=== PATIENT | male | born 1935 | race Caucasian/White ===

== ENCOUNTER 2018-01-06 08:30 | Inpatient (IN) | payer MEDICARE ==
[2018-01-06] MEDS ORDERED: Acetaminophen 500 MG Tab PO ONE (09:00)
[2018-01-06] MEDS ORDERED: Gabapentin 300 MG Cap PO ONE (09:00)
[2018-01-06] MEDS ORDERED: cefOXitin 2 GM in Sodium Chloride 0.9% 50 ML IV ONE (09:00)
[2018-01-06] MEDS ORDERED: Dextrose 5%-Lactated Ringers 1,000 ML IV SCH (09:00)
[2018-01-06] MEDS ORDERED: Ketamine 500 MG/5 ML MDV IV ONE (09:30)
[2018-01-06] MEDS ORDERED: Ropivacaine 50 ML, Dexamethasone 8 MG, EPINEPHrine 0.4 MG, Sodium Chloride 0.9% 27.6 ML NERVRT ONE ×4 (09:30)
[2018-01-06] MEDS ORDERED: Bupivacaine 0.5%/EPINEPHrine 1:200,000 50 ML MDV ONE (09:55)
[2018-01-06] MEDS ORDERED: Scopolamine 1.5 MG Transdermal Patch TOP SCH (10:30)
[2018-01-06] MEDS ORDERED: Succinylcholine 200 MG/10 ML MDV ONE (10:44)
[2018-01-06] MEDS ORDERED: Neostigmine Methylsulfate 1 MG/ML 5 ML Syringe ONE (10:44)
[2018-01-06] MEDS ORDERED: Rocuronium 50 MG/5 ML Vial ONE (10:44)
[2018-01-06] MEDS ORDERED: Ondansetron 4 MG/2 ML SDV ONE (10:44)
[2018-01-06] MEDS ORDERED: Propofol 200 MG/20 ML SDV ONE (10:44)
[2018-01-06] MEDS ORDERED: Glycopyrrolate 0.2 MG/ML 5 ML MDV ONE (10:44)
[2018-01-06] MEDS ORDERED: fentaNYL 250 MCG/5 ML SDV ONE ×2 (10:44→13:21)
[2018-01-06] MEDS ORDERED: Dexamethasone 4 MG/ML SDV ONE (10:44)
[2018-01-06] MEDS ORDERED: Lactated Ringers 1,000 ML ONE (13:48)
[2018-01-06] MEDS ORDERED: HYDROmorphone/Normal Saline 15 MG/30 ML PCA IV PRN (14:58)
[2018-01-06] MEDS ORDERED: Naloxone 0.4 MG/ML SDV IV PRN (15:04)
[2018-01-06] MEDS ORDERED: Ondansetron 4 MG/2 ML SDV IV PRN (15:59)
[2018-01-06] MEDS ORDERED: Glucagon,Human Recombinant 1 MG Vial IM PRN (16:09)
[2018-01-06] MEDS ORDERED: Glucose Gel 15 GM in 37.5 GM Tube PO PRN (16:09)
[2018-01-06] MEDS ORDERED: 50% Dextrose in Water 50 ML Syringe IVPUSH PRN (16:09)
[2018-01-06] MEDS ORDERED: Acetaminophen 325 MG Tab PO PRN (16:13)
[2018-01-06] MEDS: VERIFY SCOP PATCH TOP SCH (16:31)
[2018-01-06] MEDS: Insulin Aspart 100 Units/ML 3 ML Pen SUBCUT PRN ×2 (16:40→21:15)
[2018-01-06] MEDS: Dextrose 5%-Lactated Ringers 1,000 ML IV SCH ×2 (17:21→23:58)
[2018-01-06] MEDS: cefOXitin 2 GM in Sodium Chloride 0.9% 50 ML IV SCH (17:21)
[2018-01-06] MEDS: HYDROmorphone 2 MG Tab PO PRN ×2 (20:18→21:12)
[2018-01-06] MEDS: Ibuprofen 400 MG Tab PO SCH (21:19)
[2018-01-06] MEDS: Simvastatin 20 MG Tab PO SCH (21:20)
[2018-01-06] MEDS: Gabapentin 300 MG Cap PO SCH (21:20)
[2018-01-06] MEDS: Tamsulosin 0.4 MG Cap.ER PO SCH (21:21)
[2018-01-07] MEDS: VERIFY SCOP PATCH TOP SCH ×3 (00:51→20:09)
[2018-01-07] MEDS: cefOXitin 2 GM in Sodium Chloride 0.9% 50 ML IV SCH ×5 (00:55→23:37)
[2018-01-07] MEDS: HYDROmorphone 2 MG Tab PO PRN (05:49)
[2018-01-07] MEDS: Lisinopril 20 MG Tab PO SCH (08:00)
[2018-01-07] MEDS: Gabapentin 300 MG Cap PO SCH ×3 (08:00→20:07)
[2018-01-07] MEDS: Docusate Sodium 100 MG Cap PO SCH ×2 (08:00→20:06)
[2018-01-07] MEDS: Ibuprofen 400 MG Tab PO SCH ×3 (08:00→20:06)
[2018-01-07] MEDS: Insulin Aspart 100 Units/ML 3 ML Pen SUBCUT PRN (17:07)
[2018-01-07] MEDS: Tamsulosin 0.4 MG Cap.ER PO SCH (20:06)
[2018-01-07] MEDS: Dextrose 5%-Lactated Ringers 1,000 ML IV SCH (20:15)
[2018-01-07] MEDS: Simvastatin 20 MG Tab PO SCH (20:16)
[2018-01-07] MEDS ORDERED: Bisacodyl 5 MG Tab PO SCH (21:00)
[2018-01-08] MEDS: Dextrose 5%-Lactated Ringers 1,000 ML IV SCH (06:03)
[2018-01-08] MEDS: cefOXitin 2 GM in Sodium Chloride 0.9% 50 ML IV SCH (06:03)
[2018-01-08] MEDS: Ibuprofen 400 MG Tab PO SCH (08:33)
[2018-01-08] MEDS: Gabapentin 300 MG Cap PO SCH (08:34)
[2018-01-08] MEDS: Docusate Sodium 100 MG Cap PO SCH (08:35)
[2018-01-08] MEDS: Lisinopril 20 MG Tab PO SCH (08:35)
[2018-01-08] MEDS: HYDROmorphone 2 MG Tab PO PRN (08:35)
[2018-01-08 08:36] VITALS: BP 114/55
[2018-01-08] MEDS: VERIFY SCOP PATCH TOP SCH (08:37)
[2018-01-08] MEDS ORDERED: Magnesium Hydroxide 400 MG/5 ML Susp 30 ML Cup PO PRN (08:42)
[2018-01-08] MEDS ORDERED: Bisacodyl 5 MG Tab PO PRN (08:42)
--- NOTE | 2018-01-08 10:25 | PN ---
DATE OF SERVICE: 01/07/2018 The patient has been afebrile with stable vital signs, not requiring much in the way of pain medicine. We will back down the IV rate, beginning a full liquid diet and give him some bowel stimulation, and otherwise maximize activity, work with pulmonary toilet. López Conley MD /[id number]
--- NOTE | 2018-01-09 15:01 | DISCH ---
FINAL DIAGNOSES: 1. Subacute appendicitis, status post previous drainage of periappendiceal abscess. 2. Adherence of appendix to cecum and associated pericolonic abscess. OPERATIVE PROCEDURES: Diagnostic laparoscopy with; 1. Partial cecectomy with removal of overlying appendix. 2. Drainage of pericolonic abscess, that was done on 01/06/2018. OTHER DIAGNOSES: 1. Type 2 diabetes mellitus. 2. Hyperlipidemia. 3. Cardiomegaly. HOSPITAL COURSE: This is an 83-year-old male presenting for consideration of interval appendectomy. The patient had appendicitis with periappendiceal abscess with the abscess being drained percutaneously in [place] in mid-October of this year. Clinically, he has done well at this point. A CT scan done the day before admission showed some continued inflammation in that area and some fluid in the area between the appendix, cecum, and lateral abdominal wall. At the time of diagnostic laparoscopy, the patient was noted to have some smoldering inflammation within the appendix and did have a pericolonic abscess up along the edge of the lower cecum. The inflammation extended well on to the cecal base and a substantial amount of the cecum was removed, but not impinging on the ileocecal valve. Postoperatively, the patient has done well. He is not having much in the way of pain. He is passing some gas at this point. He is only requiring ibuprofen for pain. He will be sent home on his current home medications, plus ibuprofen 400 mg q.6 hours p.r.n. pain. We will send him home with 2 doses of milk of magnesia to take one today and one tomorrow if needed and 3 dulcolax tablets to take tonight at bedtime if he has not had a bowel movement as of yet. Follow up with Dr. Conley will be at [facility] on 01/18/2018 at 9 a.m.
--- NOTE | 2018-01-16 12:05 | OR ---
DATE OF PROCEDURE: 01/06/2018 PREOPERATIVE DIAGNOSES: 1. Recent appendicitis, status post percutaneous drainage of periappendiceal abscess. 2. Enlarged frequently inflamed cutaneous hemangioma, right lower quadrant abdominal wall. POSTOPERATIVE DIAGNOSES: 1. Recent appendicitis, status post percutaneous drainage of periappendiceal abscess. 2. Enlarged frequently inflamed cutaneous hemangioma, right lower quadrant abdominal wall. 3. Subacute appendicitis with inflammatory adherence of the appendix to the cecum with a pericolonic abscess. OPERATIVE PROCEDURE: 1. Excision of cutaneous hemangioma of right lower quadrant abdominal wall (23696). 2. Diagnostic laparoscopy with: a. Partial cecectomy with removal of overlying appendix (67300). b. Drainage of pericolonic abscess (12028). ANESTHESIA: General. LINER CHECKER: KAT Nath. INDICATION FOR PROCEDURE: The patient is status post a drainage of periappendiceal abscess in [place] in October, who presents now for a subsequent interval appendectomy. A CT scan was obtained yesterday, which showed subcutaneous inflammation and some fluid collection adjacent to the appendix and cecum. Plan is to proceed with diagnostic laparoscopy, laparotomy if necessary, and removal of appendix as well as any additional resection as indicated based on operative findings. Potential risks of the procedure including bleeding, infection, injury to the underlying viscera, leaks from GI tract closures, as well as possibility of cardiopulmonary, septic, or hemorrhagic complications leading to were discussed, and the patient wishes to proceed. Additionally, on preoperative examination, he was noted to have a large cutaneous hemangioma of the right lower quadrant abdominal wall, which he and his wished to have excised as well. DETAILS OF PROCEDURE: The patient was taken to the operating room and placed in a supine position. After general endotracheal anesthesia was induced, a Aguillon catheter was inserted and the abdomen prepped and draped. Initially, the cutaneous hemangioma was identified and this measured 8 mm in size and was excised, flushed with the underlying the skin and subcutaneous tissue and this was closed at the time of the skin closure of the other incision with simple layer of 4-0 Vicryl stitch. Three fingers to the left and superior to the umbilicus, a transverse incision was made and the peritoneal cavity entered under direct vision with an Optiview trocar, inflated to 15 mmHg pressure with CO2. The laparoscope was reinserted. No underlying trocar insertion site injuries were seen. Following this, eventually, 3 additional trocars were placed in the right upper quadrant as well as left lower quadrant and the lower mid abdomen. As one dissected down, there was some omentum off the area of the appendix, this area was identified. The patient was noted to have ongoing inflammation of the appendix, consistent with subacute appendicitis. Dissection continued, extremely adherent to the cecum, and the appendix and cecum were then dissected away from the lateral sidewall of the lower abdomen and pelvis. A purulent collection adjacent to cecum was encountered and this abscess was then evacuated. The dissection was then continued somewhat up onto the cecum until a relatively soft area was dissected free, which would allow visualization of the cecum at that level at a point of relatively safe for application of the staple. This was then accomplished with sequential firings of purple and blue loads with care made to visualize the ileocecal valve and avoid tightening of that during application of the stapler. The distal cecum and appendix were as required divided with Harmonic scalpel. The specimen was then delivered through the left lateral trocar site to the specimen bag. At this point, no further problems were noted. There appeared to be no remaining purulent fluid present. The cecal staple line was reinforced with some fibrin sealant. Bilateral transverse abdominis plane block was then placed under direct vision of the needles in the lateral mid abdomen in the correct plane and injection of a standard solution bilaterally. The trocars were then removed. The 12 mm sites were then closed with 0 Vicryl stitch and the skin with a 4-0 Vicryl skin stitch. The Telly-Gusman drain had been placed through an additional trocar, placed in the right flank and positioned across the area of the cecal staple line and from there into the pelvis. This was sutured with a 4-0 Vicryl stitch as well. And the patient was taken to the recovery room in satisfactory condition. There were no evident complications. López Conley MD /[id number]
== END 2018-01-08 10:25 | disposition home or self-care (01) | DRG 331 ==
LOC: JP.SDS 08:30 → JP.MS 08:30 → EDSTATUS 11:15 → JP.MS 14:50
PROVIDERS: ADMIT Surgery; ATTEND Surgery
PROC: 0DTJ4ZZ Resection of Appendix, Percutaneous Endoscopic Approach (ICD-10-PCS; principal; 2018-01-06)
PROC: 0DBH4ZZ Excision of Cecum, Percutaneous Endoscopic Approach (ICD-10-PCS; 2018-01-06)
PROC: 0W9G4ZX Drainage of Peritoneal Cavity, Percutaneous Endoscopic Approach, Diagnostic (ICD-10-PCS; 2018-01-06)
PROC: 0HB7XZZ Excision of Abdomen Skin, External Approach (ICD-10-PCS; 2018-01-06)
DX: K35.3 Acute appendicitis with localized peritonitis (principal); D18.01 Hemangioma of skin and subcutaneous tissue; I10 Essential (primary) hypertension; E11.9 Type 2 diabetes mellitus without complications; M54.9 Dorsalgia, unspecified; G89.29 Other chronic pain; E78.1 Pure hyperglyceridemia; E78.2 Mixed hyperlipidemia; Z88.5 Allergy status to narcotic agent; Z88.8 Allergy status to other drugs, medicaments and biological substances; Z79.82 Long term (current) use of aspirin; I51.7 Cardiomegaly
CPT/HCPCS: 82962; 87070; 87075; 87077; 87205; 88304; A9270-GY; J0171; J0330; J0694; J1100; J2405; J2704; J2710; J2795; J3010; J7042; J7050; J7120

== ENCOUNTER 2018-01-23 07:44 | Inpatient (IN) | payer MEDICARE ==
[2018-01-23] MEDS ORDERED: Acetaminophen 500 MG Tab PO ONE (08:00)
[2018-01-23] MEDS ORDERED: Gabapentin 300 MG Cap PO ONE (08:00)
[2018-01-23] MEDS ORDERED: fentaNYL 250 MCG/5 ML SDV ONE (08:10)
[2018-01-23] MEDS ORDERED: Rocuronium 50 MG/5 ML Vial ONE (08:11)
[2018-01-23] MEDS ORDERED: Succinylcholine 200 MG/10 ML MDV ONE (08:11)
[2018-01-23] MEDS ORDERED: Propofol 200 MG/20 ML SDV ONE (08:11)
[2018-01-23] MEDS ORDERED: Neostigmine Methylsulfate 1 MG/ML 5 ML Syringe ONE (08:11)
[2018-01-23] MEDS ORDERED: Dexamethasone 4 MG/ML SDV ONE (08:11)
[2018-01-23] MEDS ORDERED: Glycopyrrolate 0.2 MG/ML 5 ML MDV ONE (08:11)
[2018-01-23] MEDS ORDERED: Ondansetron 4 MG/2 ML SDV ONE (08:11)
[2018-01-23] MEDS ORDERED: Dextrose 5%-Lactated Ringers 1,000 ML IV SCH (08:15)
[2018-01-23] MEDS ORDERED: cefOXitin 2 GM in Sodium Chloride 0.9% 50 ML IV ONE (09:45)
[2018-01-23] MEDS ORDERED: Ropivacaine 50 ML, Dexamethasone 8 MG, EPINEPHrine 0.4 MG, Sodium Chloride 0.9% 27.6 ML NERVRT SCH ×4 (09:45)
[2018-01-23] MEDS ORDERED: Ketamine 500 MG/5 ML MDV IV SCH (09:45)
[2018-01-23] MEDS ORDERED: Naloxone 0.4 MG/ML SDV IVPUSH PRN (10:06)
[2018-01-23] MEDS ORDERED: ePHEDrine 50 MG/ML SDV ONE (10:45)
[2018-01-23] MEDS ORDERED: Phenylephrine 1% 10 MG/ML SDV ONE (11:08)
[2018-01-23] MEDS ORDERED: Sodium Chloride 0.9% 10 ML ONE (11:08)
[2018-01-23] MEDS ORDERED: Meropenem 500 MG SDV ONE (11:22)
[2018-01-23] MEDS ORDERED: 50% Dextrose in Water 50 ML Syringe IVPUSH PRN (13:12)
[2018-01-23] MEDS ORDERED: Glucose Gel 15 GM in 37.5 GM Tube PO PRN (13:12)
[2018-01-23] MEDS ORDERED: Glucagon,Human Recombinant 1 MG Vial IM PRN (13:12)
[2018-01-23] MEDS: Gabapentin 300 MG Cap PO SCH ×2 (13:53→20:52)
[2018-01-23] MEDS: Acetaminophen 1,000 MG in Premix Bag 1 BAG IV SCH ×2 (13:55→20:51)
[2018-01-23] MEDS ORDERED: diphenhydrAMINE 50 MG/ML SDV IVPUSH PRN (13:58)
[2018-01-23] MEDS ORDERED: Naloxone 0.4 MG/ML SDV IV PRN (13:58)
[2018-01-23] MEDS ORDERED: Pantoprazole 40 MG Vial IVPUSH SCH (14:00)
[2018-01-23] MEDS ORDERED: Scopolamine 1.5 MG Transdermal Patch TOP SCH (14:00)
[2018-01-23] MEDS ORDERED: Ondansetron 4 MG/2 ML SDV IVPUSH PRN (14:00)
[2018-01-23] MEDS: Metoclopramide 10 MG/2 ML SDV IVPUSH SCH ×2 (14:04→20:51)
[2018-01-23] MEDS: cefOXitin 2 GM in Sodium Chloride 0.9% 50 ML IV SCH ×2 (15:55→22:03)
[2018-01-23] MEDS: Insulin Aspart 100 Units/ML 3 ML Pen SUBCUT PRN ×2 (16:38→20:55)
[2018-01-23] MEDS: fentaNYL 2,500 MCG in Sodium Chloride 0.9% 200 ML EPIDUR SCH (16:50)
[2018-01-23] MEDS: Dextrose 5%-Lactated Ringers 1,000 ML IV SCH (17:49)
[2018-01-23] MEDS: Tamsulosin 0.4 MG Cap.ER PO SCH (20:52)
[2018-01-24] MEDS: Metoclopramide 10 MG/2 ML SDV IVPUSH SCH ×4 (01:28→19:39)
[2018-01-24] MEDS: Acetaminophen 1,000 MG in Premix Bag 1 BAG IV SCH ×3 (01:28→13:45)
[2018-01-24] MEDS: Dextrose 5%-Lactated Ringers 1,000 ML IV SCH ×2 (01:29→12:45)
[2018-01-24] MEDS: cefOXitin 2 GM in Sodium Chloride 0.9% 50 ML IV SCH ×4 (04:55→23:25)
[2018-01-24] MEDS ORDERED: Bisacodyl 10 MG Supp RECTAL ONE (09:00)
[2018-01-24] MEDS ORDERED: Sodium Chloride 0.9% 10 ML Syringe FLUSH PRN (09:02)
[2018-01-24] MEDS: Lisinopril 20 MG Tab PO SCH (09:13)
[2018-01-24] MEDS: Gabapentin 300 MG Cap PO SCH ×3 (09:13→21:12)
[2018-01-24] MEDS: Aspirin 81 MG Tab.EC PO SCH (09:13)
[2018-01-24] MEDS: SCOPOLAMINE PATCH CHECK TOP SCH (09:14)
[2018-01-24] MEDS: Ibuprofen 600 MG Tab PO SCH ×3 (09:16→21:17)
--- NOTE | 2018-01-24 09:53 | PN ---
DATE OF SERVICE: 01/24/2018 SUBJECTIVE: Mushtaq is postop day #1. He has been up ambulating. States his pain is controlled. Vital signs have been stable. He did have a bowel movement. ADA drain put out 505 of a light pink serosanguineous drainage. REVIEW OF SYSTEMS: Remainder of review of systems negative for any pertinent positives and negatives. OBJECTIVE: GENERAL: Mushtaq Yoon is a pleasant 83-year-old male. He is alert and orientated. VITAL SIGNS: TPR is 96.3, 76, 16, and blood pressure 113/99. HEENT: Negative. NECK: Supple. HEART: Regular rate and rhythm. LUNGS: Clear. ABDOMEN: Dressings dry and intact. Abdominal binder is on. EXTREMITIES: Without peripheral edema. 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 Date of surgery, 01/24/2018. PLAN: 1. Dulcolax suppository one now. 2. Regular diet. 3. Ibuprofen 600 mg q.6 hours scheduled, take with food, by mouth. 4. Tramadol 50 to 100 mg q.4 hours p.r.n. pain. 5. Schedule, have consent signed for delayed primary closure, IV and local sedation, in a.m. on 01/25/2018, López Conley MD. N.p.o. after midnight. 6. Discontinue Aguillon catheter. 7. Decrease IV to 100 mL/hour. 8. Good pulmonary toilet. 9. We will evaluate p.r.n. or in a.m. Erika Wallace PA-C /[id number]
[2018-01-24] MEDS: Pantoprazole 40 MG Tab.CR PO SCH (10:51)
[2018-01-24] MEDS: fentaNYL 2,500 MCG in Sodium Chloride 0.9% 200 ML EPIDUR SCH (16:37)
[2018-01-24] MEDS: Magnesium Sulfate/Water 2 GM in Premix Bag 1 BAG IV SCH (17:57)
[2018-01-24] MEDS: Acetaminophen 500 MG Tab PO SCH (19:44)
[2018-01-24] MEDS: Tamsulosin 0.4 MG Cap.ER PO SCH (21:12)
[2018-01-25] MEDS: Magnesium Sulfate/Water 2 GM in Premix Bag 1 BAG IV SCH ×4 (00:19→12:11)
[2018-01-25] MEDS: Dextrose 5%-Lactated Ringers 1,000 ML IV SCH (00:25)
[2018-01-25] MEDS: Acetaminophen 500 MG Tab PO SCH ×5 (02:20→20:50)
[2018-01-25] MEDS: Metoclopramide 10 MG/2 ML SDV IVPUSH SCH ×2 (02:21→12:14)
[2018-01-25] MEDS: Ibuprofen 600 MG Tab PO SCH ×4 (04:07→21:44)
[2018-01-25] MEDS: cefOXitin 2 GM in Sodium Chloride 0.9% 50 ML IV SCH ×2 (04:10→12:11)
[2018-01-25] MEDS ORDERED: Propofol 200 MG/20 ML SDV ONE (04:33)
[2018-01-25] MEDS ORDERED: fentaNYL 100 MCG/2 ML SDV ONE (04:33)
[2018-01-25] MEDS ORDERED: Midazolam 1 MG/ML 2 ML SDV ONE (04:33)
[2018-01-25] MEDS ORDERED: Magnesium Sulfate/Water 50 ML ONE (06:00)
[2018-01-25] MEDS ORDERED: Meropenem 500 MG SDV ONE (06:45)
[2018-01-25] MEDS ORDERED: Bupivacaine 0.5% 50 ML MDV ONE (06:46)
[2018-01-25] MEDS ORDERED: Lidocaine 1% with EPINEPHrine 1:100,000 50 ML MDV ONE (06:46)
[2018-01-25] MEDS ORDERED: Ropivacaine 49 ML, Dexamethasone 8 MG, EPINEPHrine 0.4 MG, Sodium Chloride 0.9% 28.6 ML NERVRT SCH ×4 (08:00)
[2018-01-25] MEDS ORDERED: Naloxone 0.4 MG/ML SDV ONE (08:35)
--- NOTE | 2018-01-25 08:42 | PN ---
DATE OF SERVICE: 01/25/2018 SUBJECTIVE: Mushtaq is n.p.o. He will be having delayed primary closure today. Blood sugars last checked at 0132 hours, had been 109 and 113 in the past 24 hours. Vital signs have been stable, afebrile. Blood pressure does run low, 82 to 87/40 to 64. He has been up ambulating. Pain is controlled. Passing flatus. ADA drains have been putting out 70 and 70 of a light pink serosanguineous drainage. He is using his IS. REVIEW OF SYSTEMS: Remainder of review of systems negative for any pertinent positives and negatives. OBJECTIVE: GENERAL: Mushtaq Yoon is an 83-year-old male. He is alert and orientated. VITAL SIGNS: TPR 97.8, 69, 18, and blood pressure 87/64. HEENT: Negative. NECK: Supple. HEART: Regular rate and rhythm. LUNGS: Clear. ABDOMEN: Dressings dry and intact. ADA drain is intact. EXTREMITIES: Without peripheral edema. 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 Date of surgery, 01/24/2018. PLAN: Delayed primary closure this a.m. Orders to be written postoperatively. Erika Wallace PA-C /[id number]
[2018-01-25] MEDS: Pantoprazole 40 MG Tab.CR PO SCH (10:08)
[2018-01-25] MEDS: Lisinopril 20 MG Tab PO SCH (10:09)
[2018-01-25] MEDS: SCOPOLAMINE PATCH CHECK TOP SCH (10:09)
[2018-01-25] MEDS: Gabapentin 300 MG Cap PO SCH ×3 (10:09→20:51)
[2018-01-25] MEDS: Aspirin 81 MG Tab.EC PO SCH (10:10)
[2018-01-25] MEDS ORDERED: Magnesium Hydroxide 400 MG/5 ML Susp 30 ML Cup PO ONE ×2 (10:30→14:00)
[2018-01-25] MEDS ORDERED: Ondansetron 4 MG Tab.DIS PO PRN (12:12)
[2018-01-25] MEDS: traMADol 50 MG Tab PO PRN ×2 (12:30→18:31)
[2018-01-25] MEDS: Insulin Aspart 100 Units/ML 3 ML Pen SUBCUT PRN ×2 (18:28→21:46)
[2018-01-25] MEDS: Tamsulosin 0.4 MG Cap.ER PO SCH (20:51)
[2018-01-26] MEDS: Acetaminophen 500 MG Tab PO SCH ×4 (01:54→20:55)
[2018-01-26] MEDS: Ibuprofen 600 MG Tab PO SCH ×4 (03:22→22:00)
[2018-01-26] MEDS: Pantoprazole 40 MG Tab.CR PO SCH (07:51)
--- NOTE | 2018-01-26 08:37 | PN ---
DATE OF SERVICE: 01/26/2018 SUBJECTIVE: Mushtaq's ADA drain has put out 295 of a milky pink drainage. He has been having bowel movements. Blood sugars have been normal. He has been up ambulating. Pain has been controlled. REVIEW OF SYSTEMS: Remainder of review of systems negative for any pertinent positives and negatives. OBJECTIVE: GENERAL: Mushtaq Yoon is an 83-year-old male, sitting up in the chair, is alert and orientated. VITAL SIGNS: TPR 97, 86, 18. Blood pressure 116/95. HEENT: Negative. NECK: Supple. HEART: Regular rate and rhythm. LUNGS: Clear. ABDOMEN: Dressings dry and intact. ADA drain is draining a pink milky drainage. Abdominal binder has been on. EXTREMITIES: Without peripheral edema. ASSESSMENT: Right sigmoid colon resection, adenocarcinoma of appendix. Date of surgery 01/24/2018. PLAN: 1. Discontinue enteric. 2. Discontinue Senna Plus. 3. Discontinue scopolamine patch. 4. Continue good pulmonary toilet. 5. Discharge in a.m. and will be discharged with Augmentin 875 mg b.i.d. for 5 days. Erika Wallace PA-C /[id number]
[2018-01-26] MEDS: Gabapentin 300 MG Cap PO SCH ×3 (10:29→20:55)
[2018-01-26] MEDS: Aspirin 81 MG Tab.EC PO SCH (10:29)
[2018-01-26] MEDS: Lisinopril 20 MG Tab PO SCH (10:32)
[2018-01-26] MEDS: Insulin Aspart 100 Units/ML 3 ML Pen SUBCUT PRN (12:22)
[2018-01-26] MEDS ORDERED: BRANDY PO PRN (16:26)
[2018-01-26] MEDS: Linezolid 600 MG in Premix Bag 1 BAG IV SCH (17:05)
[2018-01-26] MEDS: Tamsulosin 0.4 MG Cap.ER PO SCH (20:56)
[2018-01-27] MEDS: Acetaminophen 500 MG Tab PO SCH ×5 (02:51→20:05)
[2018-01-27] MEDS: Linezolid 600 MG in Premix Bag 1 BAG IV SCH ×2 (03:01→15:48)
[2018-01-27] MEDS: Ibuprofen 600 MG Tab PO SCH ×4 (03:01→22:28)
[2018-01-27] MEDS: Pantoprazole 40 MG Tab.CR PO SCH (08:40)
[2018-01-27] MEDS: Lisinopril 20 MG Tab PO SCH (08:41)
[2018-01-27] MEDS: Gabapentin 300 MG Cap PO SCH ×3 (08:41→22:28)
[2018-01-27] MEDS: Aspirin 81 MG Tab.EC PO SCH (08:41)
--- NOTE | 2018-01-27 09:52 | PN ---
DATE OF SERVICE: 01/27/2018 HISTORY OF PRESENT ILLNESS: Mushtaq in the midafternoon had an increase of drainage from his ADA drain, had put out a total for 24 hours 645 mL of a light pink serosanguineous drainage. Culture and sensitivity were obtained of the ADA drainage, which showed many white blood cells with few gram-positive cocci. Fluid amylase 273, fluid lipase 31, and fluid triglycerides 21. He is feeling better. No further confusion, which Damien and Alexa thought were associated with the tramadol. Afebrile. Activity good. Oral intake 2600. Urine output: He has been independent. REVIEW OF SYSTEMS: Remainder of review of systems is negative for any pertinent positives and negatives. OBJECTIVE: VITAL SIGNS: Mushtaq Yoon is an 83-year-old male. TPR is 96.3, 72, 17, blood pressure 137/72. HEENT: Negative. NECK: Supple. HEART: Regular rate and rhythm. LUNGS: Clear. ABDOMEN: Incision looks good. ADA drain intact and has a clear pink drainage today. Abdominal binder has been on. EXTREMITIES: Without peripheral edema. ASSESSMENT: Right sigmoid colon resection, adenocarcinoma of the appendix. Date of surgery, 01/24/2018. PLAN: Continue good pulmonary toilet, Senokot S 2 b.i.d. Continue IV Zyvox until culture and sensitivity are back on the ADA drain. We will evaluate p.r.n. or in the a.m. Erika Wallace PA-C /[id number]
[2018-01-27] MEDS: Insulin Aspart 100 Units/ML 3 ML Pen SUBCUT PRN (11:24)
[2018-01-27] MEDS: Tamsulosin 0.4 MG Cap.ER PO SCH (22:29)
[2018-01-28] MEDS: Acetaminophen 500 MG Tab PO SCH ×2 (03:20→07:23)
[2018-01-28] MEDS: Ibuprofen 600 MG Tab PO SCH ×2 (03:20→09:10)
[2018-01-28] MEDS: Linezolid 600 MG in Premix Bag 1 BAG IV SCH (03:22)
[2018-01-28 07:20] VITALS: BP 134/70
[2018-01-28] MEDS: Pantoprazole 40 MG Tab.CR PO SCH (07:23)
[2018-01-28] MEDS: Aspirin 81 MG Tab.EC PO SCH (09:09)
[2018-01-28] MEDS: Lisinopril 20 MG Tab PO SCH (09:09)
[2018-01-28] MEDS: Gabapentin 300 MG Cap PO SCH (09:09)
--- NOTE | 2018-01-31 10:44 | OR ---
DATE OF PROCEDURE: 01/25/2018 PREOPERATIVE DIAGNOSIS: Open abdominal incision. POSTOPERATIVE DIAGNOSIS: Open abdominal incision. OPERATIVE PROCEDURE: Delayed primary closure of open abdominal incision. ANESTHESIA: IV sedation plus local. INDICATION FOR PROCEDURE: This is an 83-year-old status post a right colectomy and combined with this is a sigmoid colon resection and abdominal wall excision for treatment of an appendiceal carcinoma. At the time of the original procedure, he was felt to be a high risk for wound infection if primary closure was undertaken. Given this, the incision was left open for a planned delayed primary closure at this time. Potential risks including bleeding and infection were reviewed, and the patient wishes to proceed. DETAILS OF THE PROCEDURE: The patient was taken to the operating room, placed in a supine position, sitting up roughly 30 degrees upward, so as to minimize aspiration risk. The operative dressing was then taken down and bilateral mid abdominal transversus abdominis plane blocks were placed using continuous ultrasound surveillance. Following this, the remainder of the dressing was removed and the incision was found to be clean. It was then prepped and draped, anesthetized with 1% lidocaine mixed with Marcaine and irrigated with a meropenem-containing saline solution. This was along right subcostal incision. It was then closed with 2 layers of 3-0 and 4-0 Vicryl stitch deep and catalina for the skin. Dressing was applied. The patient was taken to the recovery room in satisfactory condition. López Conley MD /[id number]
--- NOTE | 2018-01-31 11:16 | DISCH ---
ADMISSION DIAGNOSES: 1. Adenocarcinoma of appendix. 2. Hyperlipidemia. 3. Cardiomegaly. 4. Spinal stenosis. 5. 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 DISCHARGE DIAGNOSES: Exploratory laparotomy with right colectomy, en bloc rectosigmoid resection and en bloc resection of adjacent abdominal wall for appendiceal adenocarcinoma status post appendectomy, adherence of cecal closure site sigmoid colon and right lateral abdominal wall. Date of surgery 01/23/2018. HISTORY: Mushtaq Yoon is an 83-year-old male who had abscess of appendix resulting in appendectomy. Pathology culture revealed appendiceal adenocarcinoma. After preoperative evaluation and discussion of possible risks and possible complications, he wished to proceed with surgical procedure. HOSPITAL COURSE: Mushtaq had a surgery on 01/23/2018. He had no operative complications. On postoperative day #1, he was started on oral pain medication. Aguillon catheter was discontinued. He was ambulating without difficulty and pain was well managed. On postoperative day #2, he had delayed primary closure with IV and local sedation. On postoperative day 3, he developed a milky pink drainage out of his ADA drain. The culture and sensitivity were obtained. He was afebrile. No increase in pain. The culture did read many white blood cells and few gram-positive cocci. He was started on Zyvox 600 mg IV. On postoperative day 4, remained to be afebrile. His activity was good. His ADA drain did turn to serosanguineous drainage. He did have some confusion, which was thought to be associated with tramadol. He had this at a prior surgery. The tramadol had the same effects on him. He received bowel stimulation. On postoperative day 5, he was able to be discharged to home. PHYSICAL EXAMINATION: GENERAL: Mushtaq Yoon is an 83-year-old male. VITAL SIGNS: Height is 5 feet and 10.8 inches. Weight is 217 pounds. TPR is 97, 65, 18. Blood pressure 134/70. HEENT: Negative. NECK: Supple. HEART: Regular rate and rhythm. LUNGS: Clear. ABDOMEN: Pike intact. ADA drain is intact for the past 24 hours. Drain 230 mL of a light pink serosanguineous drainage. Abdominal binder has been on. EXTREMITIES: Without peripheral edema. DISPOSITION: Discharged to home. CONDITION: Stable and improving. FOLLOWUP: Followup appointment with López Conley MD on 02/01/2018 at 9:30 a.m. HOME PRESCRIPTIONS: 1. Extra-strength Tylenol 1000 mg every 6 hours p.r.n. pain. 2. Augmentin 875/125 mg one tablet b.i.d. for 5 days. 3. Aspirin 81 mg p.o. daily, enteric coated. 4. Motrin 600 mg q.6 hours p.r.n. pain, take with food. He is to resume his home medication of B12 2000 mcg oral daily, Neurontin 600 mg oral 3 times a day, lisinopril 20 mg daily, multivitamin 1 daily, Zocor 10 mg oral daily, and terazosin 2 mg oral at bedtime. DIET AFTER DISCHARGE: GI soft, low-residue diet, drink 8 to 10 glasses of water a day. ACTIVITY: No lifting greater than 10 pounds for 6 weeks. Driving, do not drive for 2 weeks. Shower/bathing, may shower. No tub bathing or swimming for 6 weeks. DISCHARGE INSTRUCTIONS: Notify provider if any fever, increased pain, swelling, redness, drainage, nausea, or vomiting. Wound incision care; keep site clean and dry. Wear abdominal binder for 6 weeks and then as tolerated. SPECIAL INSTRUCTIONS: 1. Strip empty measure and record ADA drain 4 times a day and when half full. Bring record of the drainage and the color of the drainage to clinic appointment. 2. Use incentive spirometer 10 times every hour while awake for 1 week.
--- NOTE | 2018-01-31 11:19 | PN ---
DATE OF SERVICE: 01/25/2018 The patient is to undergo a delayed primary closure of abdominal incision today. The patient otherwise is alert and walking around and working well with pulmonary toilet. We will discontinue the epidural catheter today and go ahead exclusively to oral pain medication and give him some bowel stimulation. López Conley MD /[id number]
--- NOTE | 2018-01-31 11:32 | OR ---
DATE OF PROCEDURE: 01/23/2018 PREOPERATIVE DIAGNOSES: Status post appendectomy with postoperative findings of appendiceal adenocarcinoma. POSTOPERATIVE DIAGNOSES: 1. Status post appendectomy with postoperative findings of appendiceal adenocarcinoma. 2. Adherence of cecal closure site to sigmoid colon and right lateral abdominal wall. OPERATIVE PROCEDURES: Exploratory laparotomy with; 1. Right colectomy, (77522). 2. En bloc rectosigmoid colon resection with coloproctostomy, (89634). 3. En bloc wide resection of adjacent abdominal wall, (49605). ANESTHESIA: General. LIABILITY ANALYST: Erika Wallace PA-C. INDICATIONS FOR PROCEDURE: This is an 83-year-old presenting recently with a perforated appendicitis. This was drained in October in [place], at which time, the percutaneous drainage of the pericolonic abscess had been completed. He presented in for an interval appendectomy, which was done approximately 2 weeks ago. With the present findings, the plan is to proceed with exploratory laparotomy, right colectomy, and other procedures as indicated based on operative findings. Of note, there are no obvious tumor implants or other evidence of metastatic disease on either the operative procedures performed recently or on any of the preoperative imaging or clinical exam. Potential risks of the procedure were reviewed with the patient including bleeding, infection, leaks from various GI tract closures, injury to underlying viscera, possibility of local or distant tumor recurrence, possible need for additional treatment such as chemotherapy or radiation treatment postoperatively were all reviewed, and the patient wishes to proceed. DETAILS OF PROCEDURE: The patient was taken to the operating room and an epidural catheter was placed. Following this, he was placed in a supine position and general endotracheal anesthetic was induced, and the abdomen was prepped and draped. Aguillon catheter was also inserted. A right subcostal-type incision was then made and carried down through the full thickness abdominal wall. Upon entering the peritoneal cavity, general exploration was undertaken. There was no peritoneal fluid or any evidence of mucoid accumulation or other peritoneal implants, tumor. The area of the cecal base was at this point quite adherent to the right lateral abdominal wall and also to the adjacent sigmoid colon. It was felt, given the fact that the tumor extended out to the serosal surface, that these structures would probably be best resected en bloc so as to avoid making it any tumor that might at this point be walled off within those areas. Given this, the sigmoid colon was divided proximally and distally at the point of adherence. The proximal end of that division was in the distal sigmoid colon and the lower end was in the upper rectum. Both sites were divided with ABDI black loads, given some thickening of the tissue in that area, and the underlying mesentery divided with mesenteric ABDI loads. As the cecum was then mobilized upward, the distal small bowel was divided with the ABDI stapler and over roughly 10 cm length, the abdominal wall was debrided, the adjacent peritoneum fat and some musculature at the point of lateral attachments of the cecum to those areas. This was all then removed en bloc. This then allowed medial mobilization of the cecum upward with care taken to avoid injury to the underlying ureter and duodenum. The transverse colon to the right of the middle colic vessels was then divided with ABDI stapler as well and mesentery between the divided point of the small bowel and the transverse colon was then divided with a combination of vascular and mesenteric loads. Care was taken to remove the ileocolic mesenteric chain at its origin off the superior mesenteric vascular system, and this specimen was then delivered from the field. At this point, no further problems were noted. The abdomen was irrigated with meropenem- containing saline solution. The course of the right ureter and duodenum were confirmed to be intact. At that point, initially, the coloproctostomy between the sigmoid colon and rectum was accomplished. This was done with placement of the anvil of a 28-mm EEA stapler and into the now opened end of the sigmoid colon. Once this was placed into the lumen of the colon, it was then re-closed off with a ABDI black load, and the anvil brought out through the most dependent portion of that segment. The rectum was then dissected somewhat inferiorly to allow an opening on the end of the rectum, and this was then brought out through the site of the rectum on its antimesenteric surface attached to the anvil, and the coloproctostomy was then subsequently accomplished. The open end of the rectum was then divided off with a ABDI stapler as well and the angles anastomosed, and mesenteric defects in this case were reinforced with some 3-0 Vicryl stitch. The ileocolic anastomosis between the divided small bowel and transverse colon was then accomplished with 2 internal firings of the ABDI mata loads and the common opening was closed with purple loads, angles anastomosed and mesenteric defect approximated with some 3-0 Vicryl stitch. At that point, no further problems were noted. Both anastomoses were reinforced with fibrin sealant and Telly-Gusman drain was placed through a stab wound in the right upper abdomen, taken across the areas of both anastomoses. The posterior rectus sheath and peritoneum were then approximated with a #2 Vicryl stitch as was the anterior rectus sheath, and the lateral musculature consisting of the external and internal oblique muscles. The skin and subcutaneous tissue were felt to be at high risk for wound infection if a primary closure was undertaken. Given this, these were then packed open for a planned delayed primary closure in 48 hours. The patient was taken to the recovery room in a satisfactory condition. Physician speech therapy assistant, Erika Wallace, played an essential role in assisting in this case, helping to position the patient, retract structures as needed, as well as suturing and cutting sutures when indicated. Her presence improved patient safety and decreased the operative time. López Conley MD /[id number]
== END 2018-01-28 09:20 | disposition home or self-care (01) | DRG 331 ==
LOC: JP.SDSSCHI 07:44 → JP.SDS 07:44 → JP.2SS 12:10 → EDSTATUS 12:30 → JP.MS 01-26 12:12
PROVIDERS: ADMIT Surgery; ATTEND Surgery
PROC: 0DTF0ZZ Resection of Right Large Intestine, Open Approach (ICD-10-PCS; principal; 2018-01-23)
PROC: 0D1L0ZP Bypass Transverse Colon to Rectum, Open Approach (ICD-10-PCS; 2018-01-23)
PROC: 0HD7XZZ Extraction of Abdomen Skin, External Approach (ICD-10-PCS; 2018-01-23)
PROC: 0WQF0ZZ Repair Abdominal Wall, Open Approach (ICD-10-PCS; 2018-01-25)
DX: C18.1 Malignant neoplasm of appendix (principal); I10 Essential (primary) hypertension; E78.2 Mixed hyperlipidemia; E11.21 Type 2 diabetes mellitus with diabetic nephropathy; Z87.891 Personal history of nicotine dependence; Z88.8 Allergy status to other drugs, medicaments and biological substances; Z79.82 Long term (current) use of aspirin; K66.0 Peritoneal adhesions (postprocedural) (postinfection); I51.7 Cardiomegaly; M48.00 Spinal stenosis, site unspecified; E53.8 Deficiency of other specified B group vitamins; N40.0 Benign prostatic hyperplasia without lower urinary tract symptoms
CPT/HCPCS: 36415; 80053; 82150; 82378; 82962; 83735; 83880; 84100; 84478; 85027; 87070; 87077; 87186; 87205; 88307; 88309; 88342; 93005; 94762; A9270-GY; C9113; J0131; J0171; J0330; J0694; J1100; J2020; J2185; J2250; J2310; J2370; J2405; J2704; J2710; J2765; J2795; J3010; J3475; J7042; J7050

== ENCOUNTER 2019-01-16 05:30 | Day surgery (SDC) | payer MEDICARE ==
[2019-01-16] MEDS ORDERED: Dextrose 5%-Lactated Ringers 1,000 ML IV SCH (06:00)
[2019-01-16] MEDS ORDERED: Glycopyrrolate 0.2 MG/ML 2 ML SDV IVPUSH ONE (06:00)
[2019-01-16] MEDS ORDERED: Propofol 200 MG/20 ML SDV ONE (07:17)
[2019-01-16 08:54] VITALS: BP 129/71
--- NOTE | 2019-01-22 09:14 | OR ---
DATE OF PROCEDURE: 01/16/2019 PREOPERATIVE DIAGNOSIS: History of appendiceal carcinoma, status post right colectomy. POSTOPERATIVE DIAGNOSES: 1. Uncomplicated left colonic diverticulosis. 2. No evidence of recurrence of appendiceal carcinoma or colorectal neoplasia. PROCEDURE: Flexible colonoscopy. ANESTHESIA: IV sedation. INDICATIONS FOR PROCEDURE: This is an 84-year-old status post a right colectomy for treatment of appendiceal carcinoma with this being done on 01/06/2018. The patient presents now for a followup colonoscopy to rule out recurrent disease, as well as examine the remainder of the colon. Potential risks of the procedure including bleeding and perforation were discussed, and the patient wishes to proceed. DETAILS OF PROCEDURE: The patient was taken to the operating room and placed in a left lateral decubitus position. IV sedation was administered, after which the initial digital rectal exam was performed and was unremarkable. Colonoscope was then placed in the rectum with retroflexion revealing uncomplicated hemorrhoidal columns. The scope was then eventually passed to the level of the ileal to transverse colon anastomosis. There appears to be moderate amount of uncomplicated left colonic diverticulosis, otherwise the area of the anastomosis is free of any evidence of recurrent disease. Otherwise, there is no evidence of any recurrent colonic polyps or other signs of neoplasia and no areas of colitis. The scope was then withdrawn. The above findings were reconfirmed, and the procedure was then concluded. The patient was taken to the recovery room in satisfactory condition. The patient will be following up with Medical Oncology. We will consider followup colonoscopy per the recommendations of Medical Oncology as they arise. López Conley MD /[id number]
== END 2019-01-16 08:40 | disposition home or self-care (01) ==
LOC: JP.SDS 05:30
PROVIDERS: ATTEND Surgery
DX: Z12.11 Encounter for screening for malignant neoplasm of colon (principal); K57.30 Diverticulosis of large intestine without perforation or abscess without bleeding; K64.9 Unspecified hemorrhoids; I51.7 Cardiomegaly; E11.9 Type 2 diabetes mellitus without complications; E78.5 Hyperlipidemia, unspecified; Z88.5 Allergy status to narcotic agent; Z88.6 Allergy status to analgesic agent; Z90.49 Acquired absence of other specified parts of digestive tract; Z85.038 Personal history of other malignant neoplasm of large intestine
CPT/HCPCS: G0105; J2704; J7042

== ENCOUNTER 2021-01-14 06:02 | Day surgery (SDC) | payer MEDICARE ==
[~2021-01-14 06:02] MED LIST: Nozin Nasal Sanitizer NASBOTH ONE; ceFAZolin 1 GM in Premix Bag 1 BAG IV ONE
[2021-01-14] MEDS ORDERED: Bupivacaine 0.5% 30 ML SDV ONE (06:46)
[2021-01-14] MEDS ORDERED: Lactated Ringers 1,000 ML IV SCH (07:00)
[2021-01-14] MEDS ORDERED: Lidocaine 0.5% 50 ML SDV ONE (07:19)
[2021-01-14] MEDS ORDERED: fentaNYL 100 MCG/2 ML SDV ONE (07:19)
[2021-01-14] MEDS ORDERED: Propofol 200 MG/20 ML SDV ONE ×2 (07:19→08:13)
[2021-01-14 09:41] VITALS: BP 113/53; PULSE 67
--- NOTE | 2021-01-21 20:15 | OR ---
DATE OF PROCEDURE: 01/14/2021 SURGEON: Chris Jones MD PREOPERATIVE DIAGNOSIS: Left carpal tunnel syndrome. POSTOPERATIVE DIAGNOSIS: Left carpal tunnel syndrome. PROCEDURE: Left carpal tunnel release. ANESTHESIA: Albret block with sedation. INDICATIONS: Mushtaq is an 86-year-old gentleman with a history of progressive pain, tingling, and numbness in the median nerve distribution of his left hand. He has failed conservative treatment. He shows evidence of some thenar muscle wasting and is, therefore, brought to the operating room for release of the carpal tunnel. Risks, benefits, and potential complications were discussed. DESCRIPTION OF PROCEDURE: After adequate anesthesia was obtained, the patient was placed supine with a prep of the right hand and forearm. He was draped in a sterile fashion. A longitudinal incision was made distal to the wrist crease in line with the 3rd and 4th finger interspace. This was carried down through the subcutaneous tissues. The palmar fascia was divided. The transverse carpal ligament was then divided under direct visualization. This was very thick. Once this was divided, the median nerve was identified and showed significant hourglass constriction and flattening under the ligament. No significant tenosynovitis was noted. No other space-occupying masses or other abnormalities were identified. The wound was irrigated. Confirmation of the release was done both visually and by palpation proximally and distally. The skin was then closed with 3-0 nylon in an interrupted mattress fashion. Skin edges were infiltrated with Marcaine, and a sterile dressing was applied. The patient tolerated the procedure very well. There were no complications. Taken from the operating room in stable condition. Chris Jones MD /[id number]
== END 2021-01-14 09:45 | disposition home or self-care (01) ==
LOC: JP.SDS 06:02
PROVIDERS: ATTEND Specialist
DX: G56.02 Carpal tunnel syndrome, left upper limb (principal); I10 Essential (primary) hypertension; E78.2 Mixed hyperlipidemia; E11.9 Type 2 diabetes mellitus without complications; Z79.84 Long term (current) use of oral hypoglycemic drugs; Z98.890 Other specified postprocedural states; Z79.899 Other long term (current) drug therapy; Z87.891 Personal history of nicotine dependence
CPT/HCPCS: 64721; A9270; J0690; J2704; J3010; J3490; J7120

== ENCOUNTER 2022-03-03 06:56 | Day surgery (SDC) | payer MEDICARE ==
[~2022-03-03 06:56] MED LIST changes: +Bupivacaine 0.5% 30 ML SDV ONE; -Nozin Nasal Sanitizer NASBOTH ONE; -ceFAZolin 1 GM in Premix Bag 1 BAG IV ONE
[2022-03-03] MEDS ORDERED: Midazolam 1 MG/ML 2 ML SDV ONE (07:17)
[2022-03-03] MEDS ORDERED: Propofol 200 MG/20 ML SDV ONE (07:17)
[2022-03-03] MEDS ORDERED: fentaNYL 100 MCG/2 ML SDV ONE (07:17)
[2022-03-03] MEDS ORDERED: Bupivacaine 0.5% 30 ML SDV ONE (07:19)
[2022-03-03] MEDS ORDERED: Dexamethasone 4 MG/ML SDV ONE (07:21)
[2022-03-03] MEDS ORDERED: Ondansetron 4 MG/2 ML SDV ONE (07:21)
[2022-03-03] MEDS ORDERED: Neostigmine Methylsulfate 1 MG/ML 5 ML Syringe ONE (07:21)
[2022-03-03] MEDS ORDERED: Rocuronium 50 MG/5 ML Vial ONE (07:21)
[2022-03-03] MEDS ORDERED: Glycopyrrolate 0.2 MG/ML 5 ML MDV ONE (07:21)
[2022-03-03 07:48] LABS: ESTIMATED GFR 49 mL/min (>60)
[2022-03-03] MEDS: Lactated Ringers 1,000 ML IV SCH (07:59)
[2022-03-03] MEDS: Nozin Nasal Sanitizer NASBOTH SCH (08:15)
[2022-03-03] MEDS: ceFAZolin 2 GM in Premix Bag 1 BAG IV ONE (08:39)
[2022-03-03] MEDS ORDERED: Succinylcholine 200 MG/10 ML MDV ONE (08:59)
[2022-03-03] MEDS ORDERED: Sodium Chloride 0.9% 10 ML ONE (09:20)
[2022-03-03] MEDS ORDERED: Phenylephrine 1% 10 MG/ML SDV ONE (09:20)
[2022-03-03] MEDS ORDERED: Lactated Ringers 1,000 ML ONE (10:52)
[2022-03-03] MEDS ORDERED: HYDROmorphone 0.5 MG/0.5 ML Syringe IVPUSH PRN (11:01)
[2022-03-03] MEDS ORDERED: oxyCODONE 5 MG Tab PO PRN ×2 (11:01)
[2022-03-03] MEDS ORDERED: Ibuprofen 400 MG Tab PO PRN (11:31)
[2022-03-03] MEDS: Sodium Chloride 0.9% 1,000 ML IV SCH (12:38)
[2022-03-03] MEDS ORDERED: ceFAZolin 1 GM in Sodium Chloride 0.9% 50 ML IV SCH (14:00)
[2022-03-03] MEDS ORDERED: Gabapentin 300 MG Cap PO SCH (14:00)
[2022-03-03] MEDS: Gabapentin 300 MG Cap PO SCH (14:02)
[2022-03-03] MEDS: Acetaminophen 500 MG Tab PO SCH (14:03)
[2022-03-03 15:00] VITALS: BP 142/67; PULSE 83
[2022-03-03] MEDS ORDERED: ceFAZolin 1 GM in Premix Bag 1 BAG IV SCH (16:00)
[2022-03-03] MEDS ORDERED: Docusate Sodium 100 MG Cap PO SCH (21:00)
[2022-03-03] MEDS ORDERED: Non-Formulary Medication 1 Each (Simvastatin [Zocor] 20 MG Tablet) PO SCH (21:00)
[2022-03-03] MEDS ORDERED: Pravastatin 20 MG Tab PO SCH (21:00)
[2022-03-03] MEDS ORDERED: Nozin Nasal Sanitizer NASBOTH SCH (21:00)
[2022-03-03] MEDS ORDERED: Terazosin 1 MG Cap PO SCH (21:00)
[2022-03-04] MEDS ORDERED: metFORMIN 500 MG Tab PO SCH (08:00)
[2022-03-04] MEDS ORDERED: TERAZOSIN HCL 2 MG PO SCH (09:00)
[2022-03-04] MEDS ORDERED: Non-Formulary Medication 1 Each (Metformin [Glucophage Xr] 500 MG Tab.Er) PO SCH (09:00)
[2022-03-04] MEDS ORDERED: Lisinopril 20 MG Tab PO SCH (09:00)
== END 2022-03-03 16:13 | disposition home or self-care (01) ==
LOC: JP.SDS 06:56 → JP.MS 11:01 → JP.SDS 16:13
PROVIDERS: ATTEND Specialist
DX: T84.029A Dislocation of unspecified internal joint prosthesis, initial encounter (principal); T84.498A Other mechanical complication of other internal orthopedic devices, implants and grafts, initial encounter; I10 Essential (primary) hypertension; E11.9 Type 2 diabetes mellitus without complications; E78.5 Hyperlipidemia, unspecified; M48.061 Spinal stenosis, lumbar region without neurogenic claudication; Z79.84 Long term (current) use of oral hypoglycemic drugs; Z88.5 Allergy status to narcotic agent; Z96.619 Presence of unspecified artificial shoulder joint; Z79.899 Other long term (current) drug therapy; Z88.8 Allergy status to other drugs, medicaments and biological substances; Z87.891 Personal history of nicotine dependence
CPT/HCPCS: 23474; 36415; 73020-26-RT; 73020-RT; 80053; 82947; 85027; 93005; 93010; 97110-GP; 97161-GP; A9270-GY; C1713; C1776; J0330; J0690; J1100; J2250; J2370; J2405; J2704; J2710; J3010; J3490; J7030; J7120

== ENCOUNTER 2022-04-28 05:58 | Day surgery (SDC) | payer MEDICARE ==
[2022-04-28 06:41] LABS: ESTIMATED GFR 45 mL/min (>60)
[2022-04-28] MEDS ORDERED: Bupivacaine 0.5% 50 ML MDV ONE (06:56)
[2022-04-28] MEDS ORDERED: Lactated Ringers 1,000 ML IV SCH (07:00)
[2022-04-28] MEDS ORDERED: fentaNYL 250 MCG/5 ML SDV ONE (07:33)
[2022-04-28] MEDS ORDERED: Dexamethasone 4 MG/ML SDV ONE (07:34)
[2022-04-28] MEDS ORDERED: Propofol 200 MG/20 ML SDV ONE (07:34)
[2022-04-28] MEDS ORDERED: Neostigmine Methylsulfate 1 MG/ML 5 ML Syringe ONE (07:34)
[2022-04-28] MEDS ORDERED: Ondansetron 4 MG/2 ML SDV ONE (07:34)
[2022-04-28] MEDS ORDERED: Rocuronium 50 MG/5 ML Vial ONE (07:34)
[2022-04-28] MEDS ORDERED: Succinylcholine 200 MG/10 ML MDV ONE (07:34)
[2022-04-28] MEDS ORDERED: Glycopyrrolate 0.2 MG/ML 5 ML MDV ONE (07:34)
[2022-04-28] MEDS ORDERED: Nozin Nasal Sanitizer NASBOTH ONE (07:45)
[2022-04-28] MEDS ORDERED: ePHEDrine 50 MG/ML SDV ONE (08:21)
[2022-04-28] MEDS ORDERED: Phenylephrine 1% 10 MG/ML SDV ONE (09:09)
[2022-04-28] MEDS ORDERED: Sodium Chloride 0.9% 10 ML ONE (09:10)
[2022-04-28] MEDS ORDERED: Lactated Ringers 1,000 ML ONE (09:32)
[2022-04-28 11:35] VITALS: BP 119/50; PULSE 88
== END 2022-04-28 11:30 | disposition home or self-care (01) ==
LOC: JP.SDS 05:58
PROVIDERS: ATTEND Specialist
DX: T84.69XA Infection and inflammatory reaction due to internal fixation device of other site, initial encounter (principal); M65.811 Other synovitis and tenosynovitis, right shoulder; I10 Essential (primary) hypertension; R73.03 Prediabetes; Z88.8 Allergy status to other drugs, medicaments and biological substances; Z88.5 Allergy status to narcotic agent
CPT/HCPCS: 23105; 36415; 80053; 85027; 85651; 86140; 87070; 87075; 87077; 87205; J0330; J1100; J2370; J2405; J2704; J2710; J3010; J3370; J3490; J7050; J7120

== ENCOUNTER → 2022-06-16 | Day surgery (SDC) | payer MEDICARE ==
[~2022-06-16] MED LIST changes: +Acetaminophen/oxyCODONE 325-5 MG Tab PO PRN; -Bupivacaine 0.5% 30 ML SDV ONE; +Dexamethasone 4 MG/ML SDV ONE; +Gentamicin 500 MG in Sodium Chloride 0.9% 100 ML IV SCH; +Glycopyrrolate 0.2 MG/ML 5 ML MDV ONE; +Lactated Ringers 1,000 ML IV ONE; +Lactated Ringers 1,000 ML IV SCH; +Neostigmine Methylsulfate 1 MG/ML 5 ML Syringe ONE; +Nozin Nasal Sanitizer NASBOTH SCH; +Ondansetron 4 MG/2 ML SDV ONE; +Propofol 200 MG/20 ML SDV ONE; +Rocuronium 50 MG/5 ML Vial ONE; +Succinylcholine 200 MG/10 ML MDV ONE; +Vancomycin 1 GM SDV ONE; +ePHEDrine 50 MG/ML SDV ONE; +fentaNYL 100 MCG/2 ML SDV ONE; +fentaNYL 250 MCG/5 ML SDV ONE
[2022-07-10 13:49] LABS: ESTIMATED GFR 49 mL/min (>60)
== END ==
LOC: JP.SDS 06:00
PROVIDERS: ATTEND Specialist
DX: T84.59XA Infection and inflammatory reaction due to other internal joint prosthesis, initial encounter (principal); I10 Essential (primary) hypertension; E78.00 Pure hypercholesterolemia, unspecified; E11.9 Type 2 diabetes mellitus without complications; Z88.5 Allergy status to narcotic agent; Z88.6 Allergy status to analgesic agent
CPT/HCPCS: 23474; 36415; 80053; 85027; 85651; 86140; 87070; 87075; 87205; A9270; C1713; C1776; J0330; J1100; J1580; J2405; J2704; J2710; J3010; J3370; J3490; J7030; J7050; J7120

== ENCOUNTER → 2022-07-07 | Day surgery (SDC) | payer MEDICARE ==
[~2022-07-07] MED LIST changes: -Acetaminophen/oxyCODONE 325-5 MG Tab PO PRN; -Gentamicin 500 MG in Sodium Chloride 0.9% 100 ML IV SCH; -Lactated Ringers 1,000 ML IV ONE; -Lactated Ringers 1,000 ML IV SCH; -Nozin Nasal Sanitizer NASBOTH SCH; -Vancomycin 1 GM SDV ONE; -ePHEDrine 50 MG/ML SDV ONE; -fentaNYL 250 MCG/5 ML SDV ONE
[2022-07-07] MEDS: Lactated Ringers 1,000 ML IV SCH (07:22)
[2022-07-07] MEDS: Nozin Nasal Sanitizer NASBOTH ONE (07:23)
[2022-07-07 07:45] LABS: ESTIMATED GFR 45 mL/min (>60)
[2022-07-07] MEDS: Bupivacaine 0.5% 30 ML SDV ONE (11:08)
[2022-07-07 13:21] VITALS: BP 124/53; PULSE 69
== END ==
LOC: JP.SDS 06:50
PROVIDERS: ATTEND Specialist
DX: T84.59XA Infection and inflammatory reaction due to other internal joint prosthesis, initial encounter (principal); I10 Essential (primary) hypertension; E78.5 Hyperlipidemia, unspecified; N40.0 Benign prostatic hyperplasia without lower urinary tract symptoms; R73.03 Prediabetes; Z88.8 Allergy status to other drugs, medicaments and biological substances; Z88.5 Allergy status to narcotic agent
CPT/HCPCS: 23105; 36415; 80053; 85027; 85651; 86140; 87070; 87075; 87205; A9270; J0330; J1100; J2405; J2704; J3010; J3370; J7050; J7120; J2710; J3490

== ENCOUNTER 2025-05-13 13:35 | Emergency (ER) | payer MEDICARE ==
[2025-05-13 15:54] LABS: BASOPHILS ABSOLUTE AUTO 0.03 K/uL (0.00-0.10); BASOPHILS PERCENT AUTO 0.3 % (0.1-1.3); EOSINOPHILS ABSOLUTE AUTO 0.12 K/uL (0.00-0.40); EOSINOPHILS PERCENT AUTO 1.3 % (0.0-5.4); IMMATURE GRAN PERCENT AUTO 0.2 % (0.0-0.7); LYMPHOCYTES ABSOLUTE AUTO 1.17 K/uL (0.8-3.3); LYMPHOCYTES PERCENT AUTO 12.9 % (11.4-47.7); MONOCYTES ABSOLUTE AUTO 1.20 K/uL (0.20-0.90); MONOCYTES PERCENT AUTO 13.2 % (3.3-12.6); NEUTROPHILS ABSOLUTE AUTO 6.52 K/uL (1.0-7.6); NEUTROPHILS PERCENT AUTO 72.1 % (40.0-78.1); PLATELET COUNT,PLT 131 K/uL (130-375); RED BLOOD CELL COUNT 3.48 M/uL (4.14-5.76); WHITE BLOOD CELL COUNT,WBC 9.1 K/uL (3.2-11.0)
[2025-05-13 15:55] LABS: IMMATURE GRAN ABSOLUTE AUTO 0.02 K/uL (0.00-0.23)
[2025-05-13 16:10] LABS: INR 1.1
[2025-05-13 16:20] LABS: A/G RATIO 0.9 (1.2-2.2); ALANINE AMINOTRANSFERASE,ALT 15 U/L (12-78); ASPARTATE AMNIOTRANSFERASE,AST 18 U/L (15-37); BILIRUBIN TOTAL 0.7 mg/dL (0.2-1.0); BLOOD UREA NITROGEN,BUN 46 mg/dL (7-18); CARBON DIOXIDE,CO2 25 mmol/L (21-32); CHLORIDE,CL 100 mmol/L (100-108); EST CRCL DRUG DOSING (CG) 12.45 mL/min; ESTIMATED GFR 12 mL/min (>60); GLUCOSE RANDOM 114 mg/dL (74-106); POTASSIUM,K 4.4 mmol/L (3.6-5.2); PROTEIN TOTAL,TP 6.8 g/dL (6.4-8.2); SODIUM,NA 134 mmol/L (140-148)
[2025-05-13 16:36] VITALS: PULSE 114
[2025-05-13 16:43] LABS: CREATININE 4.5 mg/dL (0.8-1.3)
[2025-05-13 16:44] LABS: PRO B-TYPE NATRIUR PEPT,BNPPRO 40234 pg/mL (5-450)
[2025-05-13 17:44] VITALS: BP 127/78
== END 2025-05-13 17:40 | disposition home or self-care (01) ==
LOC: JP.ED 13:35
DX: I13.0 Hypertensive heart and chronic kidney disease with heart failure and stage 1 through stage 4 chronic kidney disease, or unspecified chronic kidney disease (principal); I50.9 Heart failure, unspecified; N18.9 Chronic kidney disease, unspecified; E78.00 Pure hypercholesterolemia, unspecified; Z90.49 Acquired absence of other specified parts of digestive tract; Z79.899 Other long term (current) drug therapy; Z88.1 Allergy status to other antibiotic agents; Z88.5 Allergy status to narcotic agent; Z88.8 Allergy status to other drugs, medicaments and biological substances
CPT/HCPCS: 36415; 71046; 71046-26; 71250; 80053; 83880; 85025; 85610; 93005; 93010; 99283; 99285